=== PATIENT | female | born 1945 | race African-American/Black ===

== ENCOUNTER 2019-12-02 04:33 | Day surgery (SDC) | payer OTHER ==
[2019-12-01 15:29] VITALS: BMI 35.1
[2019-12-02] MEDS ORDERED: IOHEXOL 180 MG/1 ML ML IJ ONE (10:04)
[2019-12-02] MEDS ORDERED: BUPIVACAINE HCL/PF 0.75% 10 ML VIAL NR ONE (10:08)
[2019-12-02] MEDS ORDERED: LIDOCAINE HCL 1% PRESERVATIVE FREE - 30ML VIAL IJ ONE (10:08)
[2019-12-02 10:31] VITALS: BP 109/66; PULSE 74; TEMP 97.3
--- NOTE | 2019-12-06 11:24 | PROC ---
Procedure Note Procedure: Pre procedure Diagnosis: Lumbar Spondylosis Post Procedure Diagnosis: same Anesthesia: Local Procedure Performed: Right and Left L3 L4 L5 Medial Branch Blocks under Fluoroscopic Guidance Procedure: After the risks and benefits were explained, informed consent was obtained. The patient was then taken to the procedure room and positioned prone on the procedure table. Time out was performed. The region overlying the appropriate vertebral bodies was identified using fluoroscopy. The skin was prepped and draped in the usual sterile fashion. The skin and soft tissues were anesthetized using 1% lidocaine. Using fluoroscopic guidance, 22 gauge 3.5 inch spinal needles were then introduced to the juncture of the superior articular processes and the transverse processes of the RIGHT L3, L4, and L5 medial branches are located. Omnipaque 180 confirmed appropriate needle placement. There was no epidural or vascular flow observed. .75% bupivacaine was drawn into a syringe. 0.5cc of this solution was then injected at each level. The same procedure was repeated on the LEFT side at the same levels. The patient tolerated the procedure well and there were no complications. The patient was taken to the post procedure recovery area in good condition. Vital signs remained stable before, and after the procedure. The patient was given oral follow-up instructions.The patient was givena follow up appointment with me in the near future. iFsh Hayward D.O.
== END 2019-12-02 10:50 | disposition home or self-care (01) ==
LOC: JASU-SURG 04:33
PROVIDERS: ATTEND Pain Medicine Pain Medicine
PROC: 3E0T33Z Introduction of Anti-inflammatory into Peripheral Nerves and Plexi, Percutaneous Approach (ICD-10-PCS; 2019-12-02)
PROC: 3E0T3BZ Introduction of Anesthetic Agent into Peripheral Nerves and Plexi, Percutaneous Approach (ICD-10-PCS; principal; 2019-12-02 09:30)
DX: M47.816 Spondylosis without myelopathy or radiculopathy, lumbar region (principal); M54.5 Low back pain
CPT/HCPCS: 76000-TC-FY